=== PATIENT | male | born 1980 | race Caucasian/White ===

== ENCOUNTER 2017-06-11 22:26 | Emergency (ER) | payer BC ==
[~2017-06-11] VITALS: Ht 162.6 cm; Wt 63.6 kg
[~2017-06-11 22:26] MED LIST: AMOXICILLIN 50500 MG PO; FLEXERIL 1010 MG/TAB PO; LORTAB 5/500 501 TAB PO; MOTRIN 400400 MG/TAB PO; NAPROSYN500 MG PO; NO HOME MEDICATIONS; NORCO 325 MG-51 TAB PO; PEN-VEE K500 MG PO; ZITHROMAX 250M250 MG PO
[2017-06-11 22:28] VITALS: BP 139/90; TEMP 97.9
[2017-06-11] MEDS ORDERED: SEPTRA DS 8001 TAB PO (22:55)
[2017-06-11 23:33] VITALS: PULSE 94
== END 2017-06-11 23:33 | disposition home or self-care (01) ==
LOC: COL.ER 22:26
DX: L03.011 Cellulitis of right finger (principal); F17.210 Nicotine dependence, cigarettes, uncomplicated

== ENCOUNTER 2018-10-20 11:54 | Emergency (ER) | payer BC ==
[~2018-10-20] VITALS: Ht 162.6 cm; Wt 63.6 kg
[~2018-10-20 11:54] MED LIST changes: +SEPTRA DS 8001 TAB PO
[2018-10-20 12:00] VITALS: BP 150/109
[2018-10-20] MEDS ORDERED: ZOFRAN ODT4 MG PO (12:19)
[2018-10-20 12:25] VITALS: PULSE 89; TEMP 97.4
== END 2018-10-20 12:25 | disposition home or self-care (01) ==
LOC: COL.ER 11:54
DX: K52.9 Noninfective gastroenteritis and colitis, unspecified (principal); E86.0 Dehydration; F17.210 Nicotine dependence, cigarettes, uncomplicated

== ENCOUNTER 2022-07-18 08:24 | Emergency (ER) | payer BC ==
[~2022-07-18] VITALS: Ht 160 cm; Wt 63.6 kg
[~2022-07-18 08:24] MED LIST changes: +ZOFRAN ODT4 MG PO
[2022-07-18 08:35] VITALS: BP 129/84; PULSE 87
[2022-07-18] MEDS ORDERED: CIPRO HC OTIC S10 ML OT (08:46)
[2022-07-18] MEDS ORDERED: AMOXICILLIN875 MG PO (08:46)
[2022-07-18 09:10] VITALS: TEMP 98.6
== END 2022-07-18 09:10 | disposition home or self-care (01) ==
LOC: COL.ER 08:24
DX: H66.92 Otitis media, unspecified, left ear (principal); H60.92 Unspecified otitis externa, left ear; Z28.311 Partially vaccinated for COVID-19